=== PATIENT | female | born 1935 | race Asian ===

== ENCOUNTER 2018-06-28 12:58 | Emergency (ER) | payer OTHER ==
[~2018-06-28] VITALS: Ht 157.5 cm; Wt 68.2 kg
[~2018-06-28 12:58] MED LIST: ASPI-1198 PO; CIPR-278 PO; DIVA-76 PO; DOCU250C16 PO; DOCU250C91 PO; ERGO400T3 PO; FENO145T PO; FURO20 PO; LORA1TAB3 PO; MECL-111 PO; NEBI5 PO; NISO17TA3 PO; OSCAL; PANT40TA25 PO; POTA8TAB60 PO; PRED20 PO; RISE35TA8 PO; SIMV5TAB6 PO; TEMA15CA PO; TIOT185 IH; VALS160T2 PO
[2018-06-28] MEDS ORDERED: BISA5TAB12 PO (13:07)
[2018-06-28] MEDS ORDERED: BENZ-51 PO (13:07)
[2018-06-28] MEDS ORDERED: ALBUTEROL SULFATE 2.5 MG/0.5 ML NEB SOLUTION NEB ONE (16:00)
[2018-06-28] MEDS ORDERED: IPRATROPIUM BROMIDE 0.5 MG/2.5 ML NEB SOLUTION NEB ONE (16:00)
[2018-06-28 17:01] VITALS: BP 144/70
== END 2018-06-28 17:06 | disposition home or self-care (01) ==
LOC: EMS 12:59
DX: K59.00 Constipation, unspecified (principal); J44.9 Chronic obstructive pulmonary disease, unspecified; Z87.891 Personal history of nicotine dependence
CPT/HCPCS: 74022; 94640